=== PATIENT | female | born 1985 | race Caucasian/White ===

== ENCOUNTER → 2017-03-05 | Outpatient (CLI) | payer BC | LOC: MW.CHOBGYN 08:34 | PROVIDERS: ATTEND Advanced Practice Midwife | DX: Z34.90 Encounter for supervision of normal pregnancy, unspecified, unspecified trimester (principal) | CPT/HCPCS: 36415; 80305; 81003; 82105; 82677; 84702; 85025; 86336; 86592; 86762; 86803; 86850; 86900; 86901; 87086; 87340; 87389; 87491; 87591 ==

== ENCOUNTER → 2017-04-02 | Outpatient (CLI) | payer BC ==
--- NOTE | 2017-04-03 12:22 | US ---
EXAM DATE: 04/02/17 PATIENT'S AGE: 31 Patient: DINAH PLATT Facility: [facility], [place], [place] Site . Site : 1985 Study: US OB Pelvis [id number] 4:26:48 PM Ordering Physician: Giovanna Price Final Report: INDICATION: Evaluate anatomy. TECHNIQUE: Real time brady scale imaging of the fetus was performed as well as color Doppler analysis of the umbilical vessels. FINDINGS: Sonographic imaging demonstrates a single living intrauterine gestation. Fetus demonstrates a regular cardiac rate of 142 beats per minute. Fetus has a cephalic orientation. The placenta lies posterior without evidence of placenta previa. Amniotic fluid volume appears normal. DEONDRE measures 20 cm. The cervix is closed and measures cm in length. The composite ultrasound gestational age is calculated at 20 weeks 2 days with an estimated sonographic due date of 2016. The estimated weight is 338 grams which lies at the 39th percentile. The following biometric measurements were obtained: Biparietal diameter: 4.9 cm / 20 weeks 6 days. Head circumference: 17.9 cm / 20 weeks 2 days. Abdominal circumference: 15 cm / 20 weeks 2 days. Femur length: 3.2 cm / 20 weeks 0 days. Humerus length: 3 cm / 20 weeks 0 days. On anatomic survey, there is a normal appearance of the cerebral ventricles, cisterna magna and cerebellum. The nose, lips, and facial profile appear normal. The cervical, thoracic and lumbar spine are well visualized and appear normal. There is a normal four-chamber heart view and the left and right ventricular outflow tracts appear normal. diaphragm, stomach, kidneys and bladder appear normal. There is a normal three-vessel cord and cord insertion site. The four extremities appear normal. IMPRESSION: Normal OB ultrasound exam with concordance of clinical and sonographic dating. No intrinsic abnormalities noted on anatomic survey. Dictated by Deborah Byers MD @ Apr 03 2017 11:02AM (Electronic Signature) Report Signed by Proxy. OSCAR
== END | disposition home or self-care (01) ==
LOC: MW.US 14:55
PROVIDERS: ATTEND Advanced Practice Midwife
DX: Z36 Encounter for antenatal screening of mother (principal); Z34.92 Encounter for supervision of normal pregnancy, unspecified, second trimester
CPT/HCPCS: 76805; 76805-26

== ENCOUNTER 2017-07-30 13:16 | Inpatient (IN) | payer BC ==
[2017-07-30] MEDS ORDERED: Nalbuphine 10 MG/1 ML Vial IVPUSH PRN (14:16)
[2017-07-30] MEDS ORDERED: Water For Irrigation,Sterile 1,000 ML Container IRR PRN (14:16)
[2017-07-30] MEDS ORDERED: Butorphanol 1 MG/ML SDV IVPUSH PRN (14:16)
[2017-07-30] MEDS ORDERED: Methylergonovine 0.2 MG/1 ML Amp IM PRN (14:16)
[2017-07-30] MEDS ORDERED: Carboprost Tromethamine 250 MCG/1 ML Amp IM PRN (14:16)
[2017-07-30] MEDS ORDERED: Sodium Chloride 0.9% 2.5 ML Syringe FLUSH PRN (14:16)
[2017-07-30] MEDS ORDERED: Misoprostol 200 MCG Tab PO PRN (14:16)
[2017-07-30] MEDS ORDERED: Lidocaine 1% 50 ML MDV INJECT PRN (14:16)
[2017-07-30] MEDS ORDERED: Sodium Chloride 0.9% 10 ML Syringe FLUSH PRN (14:16)
[2017-07-30] MEDS ORDERED: Terbutaline 1 MG/ML SDV SUBCUT PRN (14:17)
[2017-07-30] MEDS ORDERED: Oxytocin/Lactated Ringers 30 UNIT/500 ML BAG IV SCH ×2 (14:30)
[2017-07-30] MEDS: Lactated Ringers 1,000 ML IV SCH ×2 (14:37→18:46)
--- NOTE | 2017-07-30 18:08 | PCM.LDHP ---
L&D History of Present Illness - General Date of Service: 07/30/17 Admit Problem/Dx: Patient Status Order with Admit Dx/Problem 07/30/17 13:19 Patient Status [ADT] Routine 07/30/17 14:16 Patient Status [ADT] Routine Admission Diagnosis/Problem Admission Diagnosis/Problem - planned 07/30/17 18:03 32 yo EDC 08/18/2017 37 2/7 weeks gestation. O+. RI, GBS Neg. SROM clear at 0530 this morning. Uneventful . 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: - Past Surgical History HEENT Surgical History: Reports: Oral Surgery Musculoskeletal Surgical History: Reports: Other (See Below) Other Musculoskeletal Surgeries/Procedures:: ganglion cyst removal right wrist, bone spur right pinky toe H&P Review of Systems - Review of Systems: Review Of Systems: See Below General: Reports: No Symptoms HEENT: Reports: No Symptoms Pulmonary: Reports: No Symptoms Cardiovascular: Reports: No Symptoms Gastrointestinal: Reports: No Symptoms Genitourinary: Reports: No Symptoms Musculoskeletal: Reports: No Symptoms Skin: Reports: No Symptoms Psychiatric: Reports: No Symptoms Neurological: Reports: No Symptoms Hematologic/Lymphatic: Reports: No Symptoms Immunologic: Reports: No Symptoms L&D Exam - Exam Exam: See Below - Vital Signs Weight: 76.204 kg - OB Specific Contraction Intensity: Strong Movement: Active Heart Tones: Present Heart Rate (FHR) Variability: Moderate (6-25 bmp) Presentation: Vertex - Edgar Score Edgar Score Cervix Position: Anterior Edgar Score Consistency: Soft Edgar Score Effacement: >80% Edgar Score Dilation: > 5 cm Edgra Score 's Station: -1 ,0 Edgar Score Total: 12 - Exam General: Alert, Oriented, Cooperative, Mild Distress HEENT: Hearing Intact Lungs: Normal Respiratory Effort GI/Abdominal Exam: Soft, Non-Tender (gravid) Rectal Exam: Deferred Genitourinary: Normal bimanual exam, Cervical dilitation, Cervical fluid Back Exam: Full Range of Motion Extremities: Normal Range of Motion, Non-Tender, No Pedal Edema, Normal Capillary Refill Skin: Warm, Dry, Intact Neurological: Cranial Nerves Intact, Normal Speech, Normal Tone Psychiatric: Alert, Normal Affect, Normal Mood - Patient Data Lab Results Last 24 hrs: Laboratory Results - last 24 hr 07/30/17 07/30/17 07/30/17 Range/Units 13:21 13:21 14:31 WBC 8.61 (4.0-11.0) K/uL RBC 4.46 (4.30-5.90) M/uL Hgb 12.5 (12.0-16.0) g/dL Hct 35.2 L (36.0-46.0) % MCV 78.9 L (80.0-98.0) fL MCH 28.0 (27.0-32.0) pg MCHC 35.5 (31.0-37.0) g/dL RDW Std Deviation 37.0 (28.0-62.0) fl RDW Coeff of Gerhard 13 (11.0-15.0) % Plt Count 165 (150-400) K/uL MPV 10.00 (7.40-12.00) fL Nucleated RBC % 0.0 /100WBC Nucleated RBCs # 0 K/uL Urine Color YELLOW Urine Appearance CLEAR Urine pH 7.5 (5.0-8.0) Ur Specific [place] 1.010 (1.001-1.035) Urine Protein NEGATIVE (NEGATIVE) mg/dL Urine Glucose (UA) NEGATIVE (NEGATIVE) mg/dL Urine Ketones NEGATIVE (NEGATIVE) mg/dL Urine Occult Blood TRACE-INTACT (NEGATIVE) Urine Nitrite NEGATIVE (NEGATIVE) Urine Bilirubin NEGATIVE (NEGATIVE) Urine Urobilinogen 0.2 (<2.0) EU/dL Ur Leukocyte Esterase NEGATIVE (NEGATIVE) Membrane Rupture POSITIVE Blood Type Antibody Screen 07/30/17 Range/Units 14:31 WBC (4.0-11.0) K/uL RBC (4.30-5.90) M/uL Hgb (12.0-16.0) g/dL Hct (36.0-46.0) % MCV (80.0-98.0) fL MCH (27.0-32.0) pg MCHC (31.0-37.0) g/dL RDW Std Deviation (28.0-62.0) fl RDW Coeff of Gerhard (11.0-15.0) % Plt Count (150-400) K/uL MPV (7.40-12.00) fL Nucleated RBC % /100WBC Nucleated RBCs # K/uL Urine Color Urine Appearance Urine pH (5.0-8.0) Ur Specific [place] (1.001-1.035) Urine Protein (NEGATIVE) mg/dL Urine Glucose (UA) (NEGATIVE) mg/dL Urine Ketones (NEGATIVE) mg/dL Urine Occult Blood (NEGATIVE) Urine Nitrite (NEGATIVE) Urine Bilirubin (NEGATIVE) Urine Urobilinogen (<2.0) EU/dL Ur Leukocyte Esterase (NEGATIVE) Membrane Rupture Blood Type O POSITIVE Antibody Screen NEGATIVE Result Diagrams: 07/30/17 14:31 - Problem List (1) Supervision of normal IUP (intrauterine ) in primigravida SNOMED Code(s): 51826756, 073152918, 789247977, 549679173 ICD Code: Z34.00 - ENCNTR FOR SUPRVSN OF NORMAL FIRST , UNSP TRIMESTER Status: Acute Priority: High Current Visit: Yes Qualifiers: Trimester: third trimester Qualified Code(s): Z34.03 - Encounter for supervision of normal first , third trimester (2) SROM (spontaneous rupture of membranes) SNOMED Code(s): 222501223 ICD Code: GAE5748 - Status: Acute Priority: High Current Visit: Yes Problem List Initiated/Reviewed/Updated: Yes Orders Last 24hrs: Active Orders 24 hr Category Date Time Status Patient Status [ADT] Routine ADT 07/30/17 13:19 Active Patient Status [ADT] Routine ADT 07/30/17 14:16 Active Bedrest Bathroom Privileges [RC] ASDIRECTED Care 07/30/17 14:17 Active Communication Order [RC] ASDIRECTED Care 07/30/17 14:17 Active Communication Order [RC] ASDIRECTED Care 07/30/17 14:17 Active Heart Tones [RC] CONTINUOUS Care 07/30/17 14:16 Active Non Stress Test [RC] PER UNIT ROUTINE Care 07/30/17 13:19 Active Non Stress Test [RC] PER UNIT ROUTINE Care 07/30/17 14:16 Active May Shower [RC] ASDIRECTED Care 07/30/17 14:16 Active Notify Provider [RC] PRN Care 07/30/17 14:16 Active Oxygen Therapy [RC] ASDIRECTED Care 07/30/17 14:17 Active Up ad Lou [RC] ASDIRECTED Care 07/30/17 13:19 Active Up ad Lou [RC] ASDIRECTED Care 07/30/17 14:16 Active Vaginal Exam [RC] Click to Edit Care 07/30/17 13:19 Active Vaginal Exam [RC] PRN Care 07/30/17 14:16 Active Vaginal Exam [RC] PRN Care 07/30/17 14:17 Active Vital Signs [RC] PER UNIT ROUTINE Care 07/30/17 13:19 Active Vital Signs [RC] PER UNIT ROUTINE Care 07/30/17 14:16 Active Vital Signs [RC] PER UNIT ROUTINE Care 07/30/17 14:17 Active Butorphanol [Stadol] Med 07/30/17 14:16 Active 1 mg IVPUSH Q1H PRN Carboprost Tromethamine [Hemabate DS] Med 07/30/17 14:16 Active 250 mcg IM ASDIRECTED PRN Lactated Ringers [Ringers, Lactated] 1,000 ml Med 07/30/17 14:30 Active IV ASDIRECTED Lidocaine 1% [Xylocaine 1%] Med 07/30/17 14:16 Active 50 ml INJECT .ONCE PRN Methylergonovine [Methergine] Med 07/30/17 14:16 Active 0.2 mg IM ASDIRECTED PRN Misoprostol [Cytotec] Med 07/30/17 14:16 Active 200 mcg PO .ONCE PRN Nalbuphine [Nubain] Med 07/30/17 14:16 Active 10 mg IVPUSH Q1H PRN Oxytocin/Lactated Ringers [Pitocin in LR 30 Units/500 Med 07/30/17 14:30 Active ML] 30 unit in 500 ml IV TITRATE Sodium Chloride 0.9% [Saline Flush] Med 07/30/17 14:16 Active 10 ml FLUSH ASDIRECTED PRN Sodium Chloride 0.9% [Saline Flush] Med 07/30/17 14:16 Active 2.5 ml FLUSH ASDIRECTED PRN Terbutaline [Brethine] Med 07/30/17 14:17 Active 0.25 mg SUBCUT ASDIRECTED PRN Water For Irrigation,Sterile [Sterile Water for Med 07/30/17 14:16 Active Irrigation] 1,000 ml IRR ASDIRECTED PRN Scalp Electrode [WOMSER] Per Unit Routine Oth 07/30/17 14:16 Ordered Peripheral IV Insertion Adult [OM.PC] Routine Oth 07/30/17 14:16 Ordered Resuscitation Status Routine Resus Stat 07/30/17 13:19 Ordered Medication Orders Butorphanol Tartrate (Stadol) 1 mg IVPUSH Q1H PRN PRN Reason: Pain Carboprost Tromethamine (Hemabate Ds) 250 mcg IM ASDIRECTED PRN PRN Reason: Post Hemorrhage Lactated Ringer's (Ringers, Lactated) 1,000 mls @ 150 mls/hr IV ASDIRECTED SHAYNA Last Admin: 07/30/17 14:37 Dose: 150 mls/hr Oxytocin/Lactated Ringer's (Pitocin In Lr 30 Units/500 Ml) 30 unit in 500 mls @ 2 mls/hr IV TITRATE SHAYNA; 2 MUNITS/MIN PRN Reason: Protocol Last Titration: 07/30/17 15:55 Dose: 4 munits/min, 4 mls/hr Admin: 07/30/17 15:04 Dose: 2 munits/min, 2 mls/hr Lidocaine HCl (Xylocaine 1%) 50 ml INJECT .ONCE PRN PRN Reason: Laceration repair Methylergonovine Maleate (Methergine) 0.2 mg IM ASDIRECTED PRN PRN Reason: Post Hemorrhage Misoprostol (Cytotec) 200 mcg PO .ONCE PRN PRN Reason: Post Hemorrhage Nalbuphine HCl (Nubain) 10 mg IVPUSH Q1H PRN PRN Reason: Pain (severe 7-10) Sodium Chloride (Saline Flush) 10 ml FLUSH ASDIRECTED PRN PRN Reason: Keep Vein Open Sodium Chloride (Saline Flush) 2.5 ml FLUSH ASDIRECTED PRN PRN Reason: Keep Vein Open Sterile Water (Sterile Water For Irrigation) 1,000 ml IRR ASDIRECTED PRN PRN Reason: delivery Terbutaline Sulfate (Brethine) 0.25 mg SUBCUT ASDIRECTED PRN PRN Reason: Tacysystole Assessment/Plan Comment:: Labor A: 32 yo EDC 08/18/2017 37 2/7 weeks gestation. O+. RI, GBS Neg. SROM clear at 0530 this morning. Uneventful . P: Admit to L&D, pitocin per protocol, Epidural prn, anticipate . Dr Infante updated on pt status.
--- NOTE | 2017-07-30 18:10 | PCM.PREANE ---
Preanesthetic Assessment - Anesthesia/Transfusion/Family Hx Anesthesia History: Prior Anesthesia Without Reaction Transfusion History: No Prior Transfusion(s) - Review of Systems General: No Symptoms Pulmonary: No Symptoms Cardiovascular: No Symptoms Gastrointestinal: No Symptoms Neurological: No Symptoms Other: Reports: None - Physical Assessment Height: 5 ft 6 in Weight: 76.204 kg ASA Class: 2 Mental Status: Alert & Oriented x3 Airway Class: Mallampati = 2 Dentition: Reports: Normal Dentition Thyro-Mental Finger Breadths: 3 Mouth Opening Finger Breadths: 3 ROM/Head Extension: Full Lungs: Clear to Auscultation, Normal Respiratory Effort Cardiovascular: Regular Rate, Regular Rhythm - Lab Values: Laboratory Last Values WBC 8.61 K/uL (4.0-11.0) 07/30/17 14:31 RBC 4.46 M/uL (4.30-5.90) 07/30/17 14:31 Hgb 12.5 g/dL (12.0-16.0) 07/30/17 14:31 Hct 35.2 % (36.0-46.0) L 07/30/17 14:31 MCV 78.9 fL (80.0-98.0) L 07/30/17 14:31 MCH 28.0 pg (27.0-32.0) 07/30/17 14:31 MCHC 35.5 g/dL (31.0-37.0) 07/30/17 14:31 RDW Std Deviation 37.0 fl (28.0-62.0) 07/30/17 14:31 RDW Coeff of Gerhard 13 % (11.0-15.0) 07/30/17 14:31 Plt Count 165 K/uL (150-400) 07/30/17 14:31 MPV 10.00 fL (7.40-12.00) 07/30/17 14:31 Nucleated RBC % 0.0 /100WBC 07/30/17 14:31 Nucleated RBCs # 0 K/uL 07/30/17 14:31 Urine Color YELLOW 07/30/17 13:21 Urine Appearance CLEAR 07/30/17 13:21 Urine pH 7.5 (5.0-8.0) 07/30/17 13:21 Ur Specific [place] 1.010 (1.001-1.035) 07/30/17 13:21 Urine Protein NEGATIVE mg/dL (NEGATIVE) 07/30/17 13:21 Urine Glucose (UA) NEGATIVE mg/dL (NEGATIVE) 07/30/17 13:21 Urine Ketones NEGATIVE mg/dL (NEGATIVE) 07/30/17 13:21 Urine Occult Blood TRACE-INTACT (NEGATIVE) 07/30/17 13:21 Urine Nitrite NEGATIVE (NEGATIVE) 07/30/17 13:21 Urine Bilirubin NEGATIVE (NEGATIVE) 07/30/17 13:21 Urine Urobilinogen 0.2 EU/dL (<2.0) 07/30/17 13:21 Ur Leukocyte Esterase NEGATIVE (NEGATIVE) 07/30/17 13:21 Membrane Rupture POSITIVE 07/30/17 13:21 Blood Type O POSITIVE 07/30/17 14:31 Antibody Screen NEGATIVE 07/30/17 14:31 - Allergies Allergies/Adverse Reactions: Allergies Allergy/AdvReac Type Severity Reaction Status Date / Time No Known Allergies Allergy Verified 07/30/17 14:15 - Acknowledgements Anesthesia Type Planned: Epidural Pt an Appropriate Candidate for the Planned Anesthesia: Yes Alternatives and Risks of Anesthesia Discussed w Pt/Guardian: Yes Pt/Guardian Understands and Agrees with Anesthesia Plan: Yes PreAnesthesia Questionnaire HEENT History: Reports: None Cardiovascular History: Reports: None Respiratory History: Reports: None Gastrointestinal History: Reports: GERD Genitourinary History: Reports: None 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 Para: 0 LMP (Approximate): Musculoskeletal History: Reports: None Neurological History: Reports: None Psychiatric History: Reports: None Endocrine/Metabolic History: Reports: None Hematologic History: Reports: None Immunologic History: Reports: None Oncologic (Cancer) History: Reports: None Dermatologic History: Reports: None - Infectious Disease History Infectious Disease History: Reports: None - Past Surgical History HEENT Surgical History: Reports: Oral Surgery Musculoskeletal Surgical History: Reports: Other (See Below) Other Musculoskeletal Surgeries/Procedures:: ganglion cyst removal right wrist, bone spur right pinky toe - CURRENT (IN HOUSE) MEDS Current Meds: Current Medications Butorphanol Tartrate (Stadol) 1 mg IVPUSH Q1H PRN PRN Reason: Pain Carboprost Tromethamine (Hemabate Ds) 250 mcg IM ASDIRECTED PRN PRN Reason: Post Hemorrhage Lactated Ringer's (Ringers, Lactated) 1,000 mls @ 150 mls/hr IV ASDIRECTED SHAYNA Last Admin: 07/30/17 14:37 Dose: 150 mls/hr Oxytocin/Lactated Ringer's (Pitocin In Lr 30 Units/500 Ml) 30 unit in 500 mls @ 2 mls/hr IV TITRATE SHAYNA; 2 MUNITS/MIN PRN Reason: Protocol Last Titration: 07/30/17 15:55 Dose: 4 munits/min, 4 mls/hr Lidocaine HCl (Xylocaine 1%) 50 ml INJECT .ONCE PRN PRN Reason: Laceration repair Methylergonovine Maleate (Methergine) 0.2 mg IM ASDIRECTED PRN PRN Reason: Post Hemorrhage Misoprostol (Cytotec) 200 mcg PO .ONCE PRN PRN Reason: Post Hemorrhage Nalbuphine HCl (Nubain) 10 mg IVPUSH Q1H PRN PRN Reason: Pain (severe 7-10) Sodium Chloride (Saline Flush) 10 ml FLUSH ASDIRECTED PRN PRN Reason: Keep Vein Open Sodium Chloride (Saline Flush) 2.5 ml FLUSH ASDIRECTED PRN PRN Reason: Keep Vein Open Sterile Water (Sterile Water For Irrigation) 1,000 ml IRR ASDIRECTED PRN PRN Reason: delivery Terbutaline Sulfate (Brethine) 0.25 mg SUBCUT ASDIRECTED PRN PRN Reason: Tacysystole Discontinued Medications Oxytocin/Lactated Ringer's (Pitocin In Lr 30 Units/500 Ml) 30 unit in 500 mls @ 999 mls/hr IV TITRATE SHAYNA PRN Reason: 999 MUNITS/MIN Stop: 07/30/17 15:01
[2017-07-30] MEDS ORDERED: fentaNYL 100 MCG/2 ML SDV ONE (18:11)
[2017-07-30] MEDS ORDERED: Ropivacaine HCl/PF 100 ML ONE (18:12)
[2017-07-30] MEDS ORDERED: Ibuprofen 800 MG Tab PO PRN (20:41)
[2017-07-30] MEDS ORDERED: Docusate Sodium 100 MG Cap PO PRN (20:41)
[2017-07-30] MEDS ORDERED: oxyCODONE 5 MG Tab PO PRN (20:41)
[2017-07-30] MEDS ORDERED: Bisacodyl 10 MG Supp RECTAL PRN (20:41)
[2017-07-30] MEDS ORDERED: Ibuprofen 400 MG Tab PO PRN (20:41)
[2017-07-30] MEDS ORDERED: Witch Hazel Medicated Pads 40/Jar TOP PRN (20:41)
[2017-07-30] MEDS ORDERED: Benzocaine/Menthol 20%-0.5% Spray 78 GM Cannister TOP PRN (20:41)
[2017-07-30] MEDS ORDERED: Acetaminophen 500 MG Tab PO PRN ×2 (20:41)
[2017-07-30] MEDS ORDERED: Lanolin 100% Cream 7 GM Tube TOP PRN (20:41)
--- NOTE | 2017-07-30 20:49 | PCM.DEL ---
L & D Note - General Info Date of Service: 07/30/17 Mother's Due Date: 08/18/17 - Delivery Note Labor: Augmented by Oxytocin Delivery Outcome: Livebirth Infant Delivery Method: Spontaneous Vaginal Delivery Delivery Mode: Spontaneous Presentation: Vertex Nuchal Cord: None Anesthesia Type: Epidural Episiotomy Type: None Laceration: None Placenta: Intact, Spontaneous Estimated Blood Loss: 150 Resuscitation Needed: No : Stimulated Score 1 min: 8 Score 5 min: 9 Second Stage Interventions: Reports: Pushing, Pulls Own Legs Back Delivery Comments (Free Text/Narrative):: of viable male over intact perineum. Head delivered with great pushing, shoulders and body followed easily. Infant to mothers abdomen with RN at for evaluation. Spont cry. Delayed cord clamp. Pitocin to IVF. Cord clamped x2 and cut by FOB. Placenta delivered grossly intact with gentle traction. Bimanual normal. EBL 150cc, Inspection noted intact perineum. APGARS 8/9, Wt: pending bonding with mother and father. Infant, mother and father left in stable condition bonding well. Induction Criteria - Augmentation Estimated Pelvis: Reports: Adequate Weight Estimated:: Reports: AGA Reassuring Monitoring Strip: Yes Absence of Tachy Systole: Yes - General Info Date of Service: 07/30/17 Admission Dx/Problem (Free Text): Patient Status Order with Admit Dx/Problem 07/30/17 13:19 Patient Status [ADT] Routine 07/30/17 14:16 Patient Status [ADT] Routine Admission Diagnosis/Problem Admission Diagnosis/Problem - planned 07/30/17 18:03 32 yo EDC 08/18/2017 37 2/7 weeks gestation. O+. RI, GBS Neg. SROM clear at 0530 this morning. Uneventful . Functional Status: Reports: Pain Controlled, Tolerating Diet - Review of Systems General: Reports: No Symptoms HEENT: Reports: No Symptoms Pulmonary: Reports: No Symptoms Cardiovascular: Reports: No Symptoms Gastrointestinal: Reports: No Symptoms Genitourinary: Reports: No Symptoms Musculoskeletal: Reports: No Symptoms Skin: Reports: No Symptoms Neurological: Reports: No Symptoms Psychiatric: Reports: No Symptoms - Patient Data Weight - Most Recent: 76.204 kg Lab Results Last 24 Hours: Laboratory Results - last 24 hr 07/30/17 07/30/17 07/30/17 Range/Units 13:21 13:21 14:31 WBC 8.61 (4.0-11.0) K/uL RBC 4.46 (4.30-5.90) M/uL Hgb 12.5 (12.0-16.0) g/dL Hct 35.2 L (36.0-46.0) % MCV 78.9 L (80.0-98.0) fL MCH 28.0 (27.0-32.0) pg MCHC 35.5 (31.0-37.0) g/dL RDW Std Deviation 37.0 (28.0-62.0) fl RDW Coeff of Gerhard 13 (11.0-15.0) % Plt Count 165 (150-400) K/uL MPV 10.00 (7.40-12.00) fL Nucleated RBC % 0.0 /100WBC Nucleated RBCs # 0 K/uL Urine Color YELLOW Urine Appearance CLEAR Urine pH 7.5 (5.0-8.0) Ur Specific [place] 1.010 (1.001-1.035) Urine Protein NEGATIVE (NEGATIVE) mg/dL Urine Glucose (UA) NEGATIVE (NEGATIVE) mg/dL Urine Ketones NEGATIVE (NEGATIVE) mg/dL Urine Occult Blood TRACE-INTACT (NEGATIVE) Urine Nitrite NEGATIVE (NEGATIVE) Urine Bilirubin NEGATIVE (NEGATIVE) Urine Urobilinogen 0.2 (<2.0) EU/dL Ur Leukocyte Esterase NEGATIVE (NEGATIVE) Membrane Rupture POSITIVE Blood Type Antibody Screen 07/30/17 Range/Units 14:31 WBC (4.0-11.0) K/uL RBC (4.30-5.90) M/uL Hgb (12.0-16.0) g/dL Hct (36.0-46.0) % MCV (80.0-98.0) fL MCH (27.0-32.0) pg MCHC (31.0-37.0) g/dL RDW Std Deviation (28.0-62.0) fl RDW Coeff of Gerhard (11.0-15.0) % Plt Count (150-400) K/uL MPV (7.40-12.00) fL Nucleated RBC % /100WBC Nucleated RBCs # K/uL Urine Color Urine Appearance Urine pH (5.0-8.0) Ur Specific [place] (1.001-1.035) Urine Protein (NEGATIVE) mg/dL Urine Glucose (UA) (NEGATIVE) mg/dL Urine Ketones (NEGATIVE) mg/dL Urine Occult Blood (NEGATIVE) Urine Nitrite (NEGATIVE) Urine Bilirubin (NEGATIVE) Urine Urobilinogen (<2.0) EU/dL Ur Leukocyte Esterase (NEGATIVE) Membrane Rupture Blood Type O POSITIVE Antibody Screen NEGATIVE Med Orders - Current: Current Medications Acetaminophen (Tylenol Extra Strength) 500 mg PO Q4H PRN PRN Reason: Pain Acetaminophen (Tylenol Extra Strength) 1,000 mg PO Q4H PRN PRN Reason: Pain Benzocaine/Menthol (Dermoplast Pain Relief 20%-0.5% [place]) 78 gm TOP ASDIRECTED PRN PRN Reason: Perineal Comfort Measure Bisacodyl (Dulcolax) 10 mg RECTAL .ONCE PRN PRN Reason: Constipation Docusate Sodium (Colace) 100 mg PO BID PRN PRN Reason: Constipation Emollient Ointment (Lansinoh Hpa) 0 gm TOP ASDIRECTED PRN PRN Reason: Sore Nipples Ibuprofen (Motrin) 400 mg PO Q4H PRN PRN Reason: Pain Ibuprofen (Motrin) 800 mg PO Q6H PRN PRN Reason: Pain Oxycodone HCl (Oxycodone) 5 mg PO Q2H PRN PRN Reason: Pain Witch Kaley (Tucks) 1 pad TOP ASDIRECTED PRN PRN Reason: comfort care Discontinued Medications Butorphanol Tartrate (Stadol) 1 mg IVPUSH Q1H PRN PRN Reason: Pain Carboprost Tromethamine (Hemabate Ds) 250 mcg IM ASDIRECTED PRN PRN Reason: Post Hemorrhage Fentanyl (Sublimaze) Confirm Administered Dose 100 mcg .ROUTE .[facility] ONE Stop: 07/30/17 18:12 Lactated Ringer's (Ringers, Lactated) 1,000 mls @ 150 mls/hr IV ASDIRECTED [facility] Last Admin: 07/30/17 18:46 Dose: 999 mls/hr Oxytocin/Lactated Ringer's (Pitocin In Lr 30 Units/500 Ml) 30 unit in 500 mls @ 999 mls/hr IV TITRATE SHAYNA PRN Reason: 999 MUNITS/MIN Stop: 07/30/17 15:01 Oxytocin/Lactated Ringer's (Pitocin In Lr 30 Units/500 Ml) 30 unit in 500 mls @ 2 mls/hr IV TITRATE SHAYNA; 2 MUNITS/MIN PRN Reason: Protocol Last Titration: 07/30/17 15:55 Dose: 4 munits/min, 4 mls/hr Ropivacaine (Naropin 0.2%) Confirm Administered Dose 100 mls @ as directed .ROUTE .[facility] ONE Stop: 07/30/17 18:13 Lidocaine HCl (Xylocaine 1%) 50 ml INJECT .ONCE PRN PRN Reason: Laceration repair Methylergonovine Maleate (Methergine) 0.2 mg IM ASDIRECTED PRN PRN Reason: Post Hemorrhage Misoprostol (Cytotec) 200 mcg PO .ONCE PRN PRN Reason: Post Hemorrhage Nalbuphine HCl (Nubain) 10 mg IVPUSH Q1H PRN PRN Reason: Pain (severe 7-10) Sodium Chloride (Saline Flush) 10 ml FLUSH ASDIRECTED PRN PRN Reason: Keep Vein Open Sodium Chloride (Saline Flush) 2.5 ml FLUSH ASDIRECTED PRN PRN Reason: Keep Vein Open Sterile Water (Sterile Water For Irrigation) 1,000 ml IRR ASDIRECTED PRN PRN Reason: delivery Terbutaline Sulfate (Brethine) 0.25 mg SUBCUT ASDIRECTED PRN PRN Reason: Tacysystole - Exam General: Alert, Oriented, Cooperative, No Acute Distress Lungs: Normal Respiratory Effort GI/Abdominal Exam: Soft, Non-Tender (Female) Exam: Normal External Exam, Normal Bimanual Exam, Vaginal Bleeding Back Exam: Full Range of Motion Extremities: Normal Range of Motion, Non-Tender, No Pedal Edema, Normal Capillary Refill Skin: Warm, Dry, Intact Wound/Incisions: Healing Well Neurological: No New Focal Deficit, Normal Speech, Normal Tone Psy/Mental Status: Alert, Normal Affect, Normal Mood - Problem List & Annotations (1) Supervision of normal IUP (intrauterine ) in primigravida SNOMED Code(s): 69441921, 765619921, 249860445, 549074364 Code(s): Z34.00 - ENCNTR FOR SUPRVSN OF NORMAL FIRST , UNSP TRIMESTER Status: Acute Priority: High Current Visit: Yes Qualifiers: Trimester: third trimester Qualified Code(s): Z34.03 - Encounter for supervision of normal first , third trimester (2) SROM (spontaneous rupture of membranes) SNOMED Code(s): 486998570 Code(s): UQU9820 - Status: Acute Priority: High Current Visit: Yes (3) (normal spontaneous vaginal delivery) SNOMED Code(s): 80555265 Code(s): O80 - ENCOUNTER FOR FULL-TERM UNCOMPLICATED DELIVERY Status: Acute Priority: High Current Visit: Yes - Problem List Review Problem List Initiated/Reviewed/Updated: Yes - My Orders Last 24 Hours: My Active Orders 07/30/17 14:16 Heart Tones [RC] CONTINUOUS Non Stress Test [RC] PER UNIT ROUTINE May Shower [RC] ASDIRECTED Notify Provider [RC] PRN Up ad Lou [RC] ASDIRECTED Vaginal Exam [RC] PRN Vital Signs [RC] PER UNIT ROUTINE 07/30/17 14:17 Bedrest Bathroom Privileges [RC] ASDIRECTED Communication Order [RC] ASDIRECTED Communication Order [RC] ASDIRECTED Oxygen Therapy [RC] ASDIRECTED Vaginal Exam [RC] PRN Vital Signs [RC] PER UNIT ROUTINE 07/30/17 20:41 May Shower [RC] ASDIRECTED Up ad Lou [RC] ASDIRECTED Vital Signs [RC] PER UNIT ROUTINE Acetaminophen [Tylenol Extra Strength] 1,000 mg PO Q4H PRN Acetaminophen [Tylenol Extra Strength] 500 mg PO Q4H PRN Benzocaine/Menthol [Dermoplast Pain Relief 20%-0.5% [place]] 78 gm TOP ASDIRECTED PRN Bisacodyl [Dulcolax] 10 mg RECTAL .ONCE PRN Docusate Sodium [Colace] 100 mg PO BID PRN Ibuprofen [Motrin] 400 mg PO Q4H PRN Ibuprofen [Motrin] 800 mg PO Q6H PRN Lanolin [Lansinoh HPA] See Dose Instructions TOP ASDIRECTED PRN Witch Kaley [Tucks] 1 pad TOP ASDIRECTED PRN oxyCODONE 5 mg PO Q2H PRN Assess Lochia [WOMSER] Per Unit Routine Assess Uterine Involution [WOMSER] Per Unit Routine Peripheral IV Discontinue [OM.PC] Routine Resuscitation Status Routine 07/30/17 20:43 Patient Status [ADT] Routine 07/31/17 Breakfast Regular Diet [DIET] - Assessment Assessment:: Delivery: A: of viable male. APGARS 8/9. Wt: pending bonding. Perineum intact, EBL 150cc. Stable - Plan Plan:: Labor A: 32 yo EDC 08/18/2017 37 2/7 weeks gestation. O+. RI, GBS Neg. SROM clear at 0530 this morning. Uneventful . P: Admit to L&D, pitocin per protocol, Epidural prn, anticipate . Dr Infante updated on pt status. Delivery: P: routine pp plan of care.
--- NOTE | 2017-07-31 11:10 | PCM48HPAN ---
Post Anesthesia Note - EVALUATION WITHIN 48HRS OF ANESTHETIC Vital Signs in Normal Range: Yes Patient Participated in Evaluation: Yes Respiratory Function Stable: Yes Airway Patent: Yes Cardiovascular Function Stable: Yes Hydration Status Stable: Yes Pain Control Satisfactory: Yes Nausea and Vomiting Control Satisfactory: Yes Mental Status Recovered: Yes
--- NOTE | 2017-07-31 12:13 | PCM.DCSUM1 ---
Discharge Summary - Hospital Course Free Text/Narrative:: Discharge home with . Follow up 6 weeks or sooner if needed. - Discharge Data Discharge Date: 07/31/17 Discharge Disposition: Home, Self-Care 01 Condition: Good - Discharge Diagnosis/Problem(s) (1) Supervision of normal IUP (intrauterine ) in primigravida SNOMED Code(s): 12498206, 354614393, 357811154, 173661694 ICD Code: Z34.00 - ENCNTR FOR SUPRVSN OF NORMAL FIRST , UNSP TRIMESTER Status: Acute Priority: High Current Visit: Yes Qualifiers: Trimester: third trimester Qualified Code(s): Z34.03 - Encounter for supervision of normal first , third trimester (2) SROM (spontaneous rupture of membranes) SNOMED Code(s): 849409828 ICD Code: [id number] - Status: Acute Priority: High Current Visit: Yes (3) (normal spontaneous vaginal delivery) SNOMED Code(s): 53648825 ICD Code: O80 - ENCOUNTER FOR FULL-TERM UNCOMPLICATED DELIVERY Status: Acute Priority: High Current Visit: Yes - Patient Instructions Diet: Usual Diet as Tolerated Activity: As Tolerated, Rest and Relax Today Driving: May Drive Today Showering/Bathing: May Shower Notify Provider of: Fever, Increased Pain, Swelling and Redness, Nausea and/or Vomiting Other/Special Instructions: Discharge home with . Follow up 6 weeks or sooner if needed. - Discharge Plan - General Info Date of Service: 07/31/17 Admission Dx/Problem (Free Text: Patient Status Order with Admit Dx/Problem 07/30/17 13:19 Patient Status [ADT] Routine 07/30/17 14:16 Patient Status [ADT] Routine Admission Diagnosis/Problem Admission Diagnosis/Problem - planned 07/30/17 18:03 32 yo EDC 08/18/2017 37 2/7 weeks gestation. O+. RI, GBS Neg. SROM clear at 0530 this morning. Uneventful . Functional Status: Reports: Pain Controlled, Tolerating Diet, Ambulating, Urinating - Review of Systems General: Reports: No Symptoms HEENT: Reports: No Symptoms Pulmonary: Reports: No Symptoms Cardiovascular: Reports: No Symptoms Gastrointestinal: Reports: No Symptoms Genitourinary: Reports: No Symptoms Musculoskeletal: Reports: No Symptoms Skin: Reports: No Symptoms Neurological: Reports: No Symptoms Psychiatric: Reports: No Symptoms - Patient Data Vitals - Most Recent: Last Vital Signs Temp 36.6 C 07/31/17 08:30 Pulse 72 07/31/17 08:30 Resp 18 07/31/17 08:30 BP 103/65 07/31/17 08:30 Pulse Ox 97 07/31/17 08:30 Weight - Most Recent: 76.204 kg Lab Results - Last 24 hrs: Laboratory Results - last 24 hr 07/30/17 07/30/17 07/30/17 Range/Units 13:21 13:21 14:31 WBC 8.61 (4.0-11.0) K/uL RBC 4.46 (4.30-5.90) M/uL Hgb 12.5 (12.0-16.0) g/dL Hct 35.2 L (36.0-46.0) % MCV 78.9 L (80.0-98.0) fL MCH 28.0 (27.0-32.0) pg MCHC 35.5 (31.0-37.0) g/dL RDW Std Deviation 37.0 (28.0-62.0) fl RDW Coeff of Gerhard 13 (11.0-15.0) % Plt Count 165 (150-400) K/uL MPV 10.00 (7.40-12.00) fL Nucleated RBC % 0.0 /100WBC Nucleated RBCs # 0 K/uL Urine Color YELLOW Urine Appearance CLEAR Urine pH 7.5 (5.0-8.0) Ur Specific [place] 1.010 (1.001-1.035) Urine Protein NEGATIVE (NEGATIVE) mg/dL Urine Glucose (UA) NEGATIVE (NEGATIVE) mg/dL Urine Ketones NEGATIVE (NEGATIVE) mg/dL Urine Occult Blood TRACE-INTACT (NEGATIVE) Urine Nitrite NEGATIVE (NEGATIVE) Urine Bilirubin NEGATIVE (NEGATIVE) Urine Urobilinogen 0.2 (<2.0) EU/dL Ur Leukocyte Esterase NEGATIVE (NEGATIVE) Membrane Rupture POSITIVE Blood Type Antibody Screen 07/30/17 Range/Units 14:31 WBC (4.0-11.0) K/uL RBC (4.30-5.90) M/uL Hgb (12.0-16.0) g/dL Hct (36.0-46.0) % MCV (80.0-98.0) fL MCH (27.0-32.0) pg MCHC (31.0-37.0) g/dL RDW Std Deviation (28.0-62.0) fl RDW Coeff of Gerhard (11.0-15.0) % Plt Count (150-400) K/uL MPV (7.40-12.00) fL Nucleated RBC % /100WBC Nucleated RBCs # K/uL Urine Color Urine Appearance Urine pH (5.0-8.0) Ur Specific [place] (1.001-1.035) Urine Protein (NEGATIVE) mg/dL Urine Glucose (UA) (NEGATIVE) mg/dL Urine Ketones (NEGATIVE) mg/dL Urine Occult Blood (NEGATIVE) Urine Nitrite (NEGATIVE) Urine Bilirubin (NEGATIVE) Urine Urobilinogen (<2.0) EU/dL Ur Leukocyte Esterase (NEGATIVE) Membrane Rupture Blood Type O POSITIVE Antibody Screen NEGATIVE Med Orders - Current: Current Medications Acetaminophen (Tylenol Extra Strength) 500 mg PO Q4H PRN PRN Reason: Pain Acetaminophen (Tylenol Extra Strength) 1,000 mg PO Q4H PRN PRN Reason: Pain Benzocaine/Menthol (Dermoplast Pain Relief 20%-0.5% [place]) 78 gm TOP ASDIRECTED PRN PRN Reason: Perineal Comfort Measure Bisacodyl (Dulcolax) 10 mg RECTAL .ONCE PRN PRN Reason: Constipation Docusate Sodium (Colace) 100 mg PO BID PRN PRN Reason: Constipation Emollient Ointment (Lansinoh Hpa) 0 gm TOP ASDIRECTED PRN PRN Reason: Sore Nipples Ibuprofen (Motrin) 400 mg PO Q4H PRN PRN Reason: Pain Ibuprofen (Motrin) 800 mg PO Q6H PRN PRN Reason: Pain Last Admin: 07/31/17 08:57 Dose: 800 mg Oxycodone HCl (Oxycodone) 5 mg PO Q2H PRN PRN Reason: Pain Witch Kaley (Tucks) 1 pad TOP ASDIRECTED PRN PRN Reason: comfort care Discontinued Medications Butorphanol Tartrate (Stadol) 1 mg IVPUSH Q1H PRN PRN Reason: Pain Carboprost Tromethamine (Hemabate Ds) 250 mcg IM ASDIRECTED PRN PRN Reason: Post Hemorrhage Fentanyl (Sublimaze) Confirm Administered Dose 100 mcg .ROUTE .[facility] ONE Stop: 07/30/17 18:12 Last Admin: 07/30/17 22:22 Dose: Not Given Lactated Ringer's (Ringers, Lactated) 1,000 mls @ 150 mls/hr IV ASDIRECTED SHAYNA Last Admin: 07/30/17 18:46 Dose: 999 mls/hr Oxytocin/Lactated Ringer's (Pitocin In Lr 30 Units/500 Ml) 30 unit in 500 mls @ 999 mls/hr IV TITRATE SHAYNA PRN Reason: 999 MUNITS/MIN Stop: 07/30/17 15:01 Last Admin: 07/30/17 22:22 Dose: Not Given Oxytocin/Lactated Ringer's (Pitocin In Lr 30 Units/500 Ml) 30 unit in 500 mls @ 2 mls/hr IV TITRATE SHAYNA; 2 MUNITS/MIN PRN Reason: Protocol Last Titration: 07/30/17 20:25 Dose: Infused Ropivacaine (Naropin 0.2%) Confirm Administered Dose 100 mls @ as directed .ROUTE .[facility] ONE Stop: 07/30/17 18:13 Last Admin: 07/30/17 22:21 Dose: Not Given Lidocaine HCl (Xylocaine 1%) 50 ml INJECT .ONCE PRN PRN Reason: Laceration repair Methylergonovine Maleate (Methergine) 0.2 mg IM ASDIRECTED PRN PRN Reason: Post Hemorrhage Misoprostol (Cytotec) 200 mcg PO .ONCE PRN PRN Reason: Post Hemorrhage Nalbuphine HCl (Nubain) 10 mg IVPUSH Q1H PRN PRN Reason: Pain (severe 7-10) Sodium Chloride (Saline Flush) 10 ml FLUSH ASDIRECTED PRN PRN Reason: Keep Vein Open Sodium Chloride (Saline Flush) 2.5 ml FLUSH ASDIRECTED PRN PRN Reason: Keep Vein Open Sterile Water (Sterile Water For Irrigation) 1,000 ml IRR ASDIRECTED PRN PRN Reason: delivery Terbutaline Sulfate (Brethine) 0.25 mg SUBCUT ASDIRECTED PRN PRN Reason: Tacysystole - Exam General: Reports: Alert, Oriented, Cooperative, No Acute Distress Lungs: Reports: Normal Respiratory Effort GI/Abdominal Exam: Soft, Non-Tender, No Organomegaly, No Distention (Female) Exam: Vaginal Bleeding Rectal (Female) Exam: Deferred Back Exam: Reports: Full Range of Motion Extremities: Normal Range of Motion, Non-Tender, No Pedal Edema, Normal Capillary Refill Skin: Reports: Warm, Dry, Intact Wound/Incisions: Reports: Healing Well Neurological: Reports: No New Focal Deficit, Normal Gait, Normal Speech, Normal Tone Psy/Mental Status: Reports: Alert, Normal Affect, Normal Mood *Q Meaningful Use (DIS) - VTE *Q VTE Criteria *Q: - Stroke *Q Stroke Criteria *Q: - AMI *Q AMI Criteria *Q:
[2017-07-31 22:24] VITALS: BP 129/77
== END 2017-07-31 22:40 | disposition home or self-care (01) | DRG 560 ==
LOC: MW.OBCHECK 13:16 → MW.OB 13:55 → OBSVTOIN 20:23 → MW.OBCHECK 20:43
PROVIDERS: ADMIT Obstetrics & Gynecology; ATTEND Obstetrics & Gynecology
PROC: 10E0XZZ Delivery of Products of Conception, External Approach (ICD-10-PCS; principal; 2017-07-30)
DX: O42.02 Full-term premature rupture of membranes, onset of labor within 24 hours of rupture (principal); Z3A.37 37 weeks gestation of pregnancy; Z37.0 Single live birth
CPT/HCPCS: 36415; 59025; 81003; 84112; 85027; 86850; 86900; 86901; A9270-GY; J2795; J3010; J7120